=== PATIENT | male | born 1960 | race Caucasian/White ===

== ENCOUNTER 2018-12-19 16:31 | Emergency (ER) | payer OTHER ==
[2018-12-19 21:45] LABS: ADD MAN DIFF? NO
[2018-12-19 21:50] LABS: BASOPHILS % 0.3 % (0.0-2.0); EOSINOPHILS # 0.1 10^3/ul (0.0-0.5); EOSINOPHILS % 1.2 % (0.0-7.0); HEMATOCRIT 44.8 % (42.0-52.0); HEMOGLOBIN 15.1 g/dl (14.0-18.0); LYMPHOCYTES # 2.4 10^3/ul (0.8-2.9); MEAN CORPUSCULAR HEMOGLOBIN 29.9 pg (29.0-33.0); MEAN CORPUSCULAR HGB CONC 33.7 g/dl (32.0-37.0); MEAN CORPUSCULAR VOLUME 88.7 fl (82.0-101.0); MEAN PLATELET VOLUME 10.2 fl (7.4-10.4); MONOCYTE # 0.8 10^3/ul (0.3-0.9); MONOCYTES % 8.9 % (0.0-11.0); NEUTROPHIL # 5.6 10^3/ul (1.6-7.5); NEUTROPHILS % 62.3 % (39.0-77.0); PLATELET COUNT 196 10^3/UL (140-415); RED BLOOD COUNT 5.05 10^6/ul (4.70-6.10); RED CELL DISTRIBUTION WIDTH 14.2 % (11.5-14.5)
[2018-12-19 22:10] LABS: INR 2.21; PROTIME 24.6 Sec (11.9-14.9); PT RATIO 1.9
[2018-12-19 22:11] LABS: PARTIAL THROMBOPLASTIN TIME 38.8 Sec (23.0-35.0)
[2018-12-19 22:12] LABS: ALANINE AMINOTRANSFERASE 71 IU/L (13-69); ALBUMIN 3.3 g/dl (3.3-4.9); ALBUMIN/GLOBULIN RATIO 1.17; ALKALINE PHOSPHATASE 53 IU/L (42-121); ANION GAP 8 (5-13); ASPARTATE AMINO TRANSFERASE 56 IU/L (15-46); BILIRUBIN,INDIRECT 1.8 mg/dl (0-1.1); BILIRUBIN,TOTAL 1.8 mg/dl (0.2-1.3); BLOOD UREA NITROGEN 23 mg/dl (7-20); CALCIUM 8.9 mg/dl (8.4-10.2); CARBON DIOXIDE 22 mmol/L (21-31); CHLORIDE 109 mmol/L (97-110); CREATININE 0.97 mg/dl (0.61-1.24); Estimated GFR > 60 mL/min (>60); GLUCOSE 103 mg/dl (70-220); POTASSIUM 4.2 mmol/L (3.5-5.1); SODIUM 139 mmol/L (135-144); TOTAL PROTEIN 6.1 g/dl (6.1-8.1)
[2018-12-19 22:23] LABS: B-TYPE NATRIURETIC PEPTIDE 10600 PG/ML (0-125); TROPONIN-I 0.114 ng/ml (0.000-0.120)
[2018-12-19] MEDS: FUROSEMIDE 40 MG INJ IV (23:52)
[2018-12-20] MEDS ORDERED: ACETAMINOPHEN 325 MG TAB PO (10:30)
[2018-12-20] MEDS ORDERED: NITROGLYCERIN (SL) 0.4 MG TAB SL (10:30)
[2018-12-20] MEDS: WARFARIN 2 MG TAB PO (10:30)
[2018-12-20] MEDS: ASPIRIN 81 MG TAB PO (10:36)
[2018-12-20] MEDS: AMIODARONE 200 MG TAB PO (10:38)
[2018-12-20] MEDS: LISINOPRIL 5 MG TAB PO (10:38)
[2018-12-20] MEDS: FUROSEMIDE 40 MG INJ IV (10:39)
[2018-12-20] MEDS ORDERED: BUMETANIDE 25 MG in DEXTROSE 5% 150 ML IV (11:00)
== END 2018-12-20 11:20 | disposition home or self-care (01) ==
LOC: E/R 12-20 11:20
DX: I50.9 Heart failure, unspecified (principal); I10 Essential (primary) hypertension; Z79.82 Long term (current) use of aspirin; Z87.891 Personal history of nicotine dependence
CPT/HCPCS: 36415; 71045; 74176; 80053; 83880; 84484; 85025; 85610; 85730; 93005; 96374; 96376; 99285-25